=== PATIENT | male | born 1980 | race Caucasian/White ===

== ENCOUNTER 2022-04-08 02:49 | Emergency (ER) | payer SELFPAY ==
[2022-04-08] MEDS ORDERED: Haloperidol Lactate 5 MG/ML SDV IM ONE ×2 (03:43→13:56)
[2022-04-08] MEDS ORDERED: diphenhydrAMINE 50 MG/ML SDV IM ONE (03:43)
[2022-04-08] MEDS ORDERED: LORazepam 2 MG/ML SDV IM ONE ×2 (03:43→13:57)
[2022-04-08 05:25] LABS: ACETAMINOPHEN <2.0 ug/mL; BLOOD UREA NITROGEN,BUN 19 mg/dL (7.0-18.0); CARBON DIOXIDE,CO2 21.8 mmol/L (21.0-32.0); CHLORIDE,CL 101 mmol/L (98-107); GLUCOSE RANDOM 121 mg/dL (74-106); POTASSIUM,K 3.3 mmol/L (3.5-5.1); SODIUM,NA 137 mmol/L (136-148)
[2022-04-08 05:29] LABS: ESTIMATED GFR 78 mL/min (>60)
[2022-04-08] MEDS ORDERED: diphenhydrAMINE 50 MG/ML SDV IM STA (13:56)
== END 2022-04-08 14:02 ==
LOC: MW.ED 02:49
DX: F29 Unspecified psychosis not due to a substance or known physiological condition (principal); Z20.822 Contact with and (suspected) exposure to COVID-19
CPT/HCPCS: 36415; 80053; 80143; 80179; 80305; 80307; 81001; 83735; 84443; 85025; 87635; 96372; 99285; J1200; J1630; J2060; U0002